=== PATIENT | female | born 1975 | race Caucasian/White ===

== ENCOUNTER 2020-05-05 14:09 | Outpatient (REF) | payer MEDICAID, SELFPAY ==
[2020-05-05 20:01] LABS: Abs Immature Grans 0.02 k/cumm (0.0-0.09); Absolute Basophil Count 0.01 k/cumm (0.0-0.2); Absolute Eosinophil Count 0.06 k/cumm (0.0-0.7); Absolute Lymphocyte Count 2.53 k/cumm (1.2-3.4); Absolute Monocyte Count 0.54 k/cumm (0.11-0.7); Basophils % 0.1; Eosinophils % 0.6; HCT 35.7 % (36.0-46.0); HGB 12.2 g/dL (12.0-15.5); Immature Grans % 0.2 %; Lymphocytes % 25.9; Mean Corp. HGB Concentration 34.2 g/dL (32.0-36.0); Mean Corpuscular Hemoglobin 29.8 pg (27.0-33.0); Mean Corpuscular Volume 87.1 fL (80-95); Monocytes % 5.5; Neutrophils % 67.7; Platelet Count 316 x1000/uL (130-400); RBC Distribution Width 12.7 % (11.7-14.6); White Blood Cell Count 9.76 k/cumm (4.4-10.8)
[2020-05-05 20:22] LABS: Glucose 97 mg/dL (74-106); TSH 2.26 uIU/mL (0.36-3.74)
== END 2020-05-05 14:29 ==
LOC: NCHCN 14:09
PROVIDERS: PCP Internal Medicine; Visit Provider Internal Medicine
DX: K21.9 Gastro-esophageal reflux disease without esophagitis (principal); M47.812 Spondylosis without myelopathy or radiculopathy, cervical region; I83.93 Asymptomatic varicose veins of bilateral lower extremities; Z13.29 Encounter for screening for other suspected endocrine disorder; Z13.1 Encounter for screening for diabetes mellitus
CPT/HCPCS: 82947; 84443; 85025

== ENCOUNTER 2021-01-09 20:26 | Outpatient (REF) | payer MEDICAID, SELFPAY ==
[2021-01-11 14:04] LABS: COVID-19 RT-PCR UVMMC Result Negative (Negative)
== END 2021-01-09 20:27 | disposition home or self-care (01) ==
LOC: NCHCN 20:26
PROVIDERS: PCP Internal Medicine; Visit Provider Internal Medicine
DX: R05 Cough (principal); R06.02 Shortness of breath
CPT/HCPCS: U0003

== ENCOUNTER 2022-07-09 18:35 | Outpatient (REF) | payer MEDICAID, SELFPAY ==
[2022-07-09 19:09] LABS: Anion Gap 10.4 mmol/L (3-11); BUN 10 mg/dL (7-18); CO2 25.6 mmol/L (21.0-32.0); CREATININE 0.7 mg/dL (0.55-1.02); Calcium 9.1 mg/dL (8.5-10.1); Chloride 103 mmol/L (98-107); Glucose 84 mg/dL (74-106); Potassium 4.2 mmol/L (3.5-5.1); Sodium 139 mmol/L (136-145)
== END 2022-07-09 18:36 | disposition home or self-care (01) ==
LOC: NCHCN 18:35
PROVIDERS: PCP Internal Medicine; Visit Provider Nurse Practitioner Family
DX: K21.9 Gastro-esophageal reflux disease without esophagitis (principal)
CPT/HCPCS: 80048

== ENCOUNTER 2023-01-04 18:12 | Outpatient (REF) | payer MEDICAID, SELFPAY ==
[2023-01-04 19:36] LABS: Abs Immature Grans 0.02 10^3/uL (0.0-0.06); Absolute Basophil Count 0.04 10^3/uL (0.0-0.2); Absolute Eosinophil Count 0.05 10^3/uL (0.0-0.7); Absolute Lymphocyte Count 2.35 10^3/uL (1.2-3.4); Absolute Monocyte Count 0.47 10^3/uL (0.1-0.8); Absolute Neutrophil Count 4.36 10^3/uL (1.2-6.7); Basophils % 0.5; Eosinophils % 0.7; HCT 36.1 % (36.0-46.0); HGB 12.4 g/dL (11.2-15.7); Immature Grans % 0.3; Lymphocytes % 32.2; MCHC 34.3 % (32.0-36.0); MCV 87 fL (80-95); MPV 10.8 fL (8.0-11.0); Monocytes % 6.4; Neutrophils % 59.9; Platelet Count 303 10^3/uL (130-400); RBC 4.14 10^6/uL (3.93-5.22); RDW 11.9 % (11.7-14.6); RDW-SD 38.8 fL; WBC 7.29 10^3/uL (4.4-10.8)
[2023-01-04 19:59] LABS: Iron 111 ug/dL (50-170); Total Iron Binding Capacity 280 ug/dL (250-450); Transferrin Sat 40 % (15-50)
[2023-01-04 20:18] LABS: Ferritin 156 ng/mL (8-252); TSH 1.86 uIU/mL (0.36-3.74)
== END 2023-01-04 18:13 | disposition home or self-care (01) ==
LOC: NCHCN 18:12
PROVIDERS: PCP Internal Medicine; Visit Provider Physician Assistant
DX: L65.9 Nonscarring hair loss, unspecified (principal)
CPT/HCPCS: 82728; 83540; 83550; 84443; 85025

== ENCOUNTER 2024-07-20 15:22 | Outpatient (REF) | payer MEDICAID, SELFPAY ==
[2024-07-20 20:17] LABS: ALT 10 U/L (14-59); AST 15 U/L (15-37); Albumin 4.1 g/dL (3.4-5.0); Alkaline Phosphatase 67 U/L (46-116); Anion Gap 10.3 mmol/L (3-11); BUN 12 mg/dL (7-18); Bilirubin, Total 0.42 mg/dL (0.2-1.0); CO2 24.7 mmol/L (21.0-32.0); CREATININE 0.6 mg/dL (0.55-1.02); Calcium 9.1 mg/dL (8.5-10.1); Chloride 105 mmol/L (98-107); Estimated GFR 111.34 (mL/min/1.73m2); FREE T4 0.94 ng/dL (0.76-1.46); Glucose 91 mg/dL (74-106); Sodium 140 mmol/L (136-145); TSH 3.14 uIU/Ml (0.36-3.74); Total Protein 7.3 g/dL (6.4-8.2)
[2024-07-20 20:33] LABS: Calculated LDL 135 mg/dL (<100); Cholesterol 213 mg/dL (<200); HDL Cholesterol 53 mg/dL (40-60); Triglyceride 128 mg/dL (<150)
== END 2024-07-20 15:23 | disposition home or self-care (01) ==
LOC: NCHCN 15:22
PROVIDERS: PCP Internal Medicine; Visit Provider Nurse Practitioner Family
DX: K21.9 Gastro-esophageal reflux disease without esophagitis (principal); Z13.220 Encounter for screening for lipoid disorders; L65.9 Nonscarring hair loss, unspecified
CPT/HCPCS: 80053; 80061; 84439; 84443